=== PATIENT | male | born 1960 | race Caucasian/White ===

== ENCOUNTER 2020-07-14 05:27 | Inpatient (IN) | payer MEDICARE, OTHER, SELFPAY ==
[2020-07-14] VITALS (11 sets, daily range): BP systolic 150–183; BP diastolic 60–120; PULSE 89–137; RESP 16–36; TEMP 36.1–36.9; O2SAT 94–100; BMI 20.4
--- NOTE | 2020-07-14 | ECG_ITS ---
Test Reason : SOB Blood Pressure : / mmHG Vent. Rate : 092 BPM Atrial Rate : 092 BPM P-R Int : 140 ms QRS Dur : 114 ms QT Int : 400 ms P-R-T Axes : 076 090 -54 degrees QTc Int : 494 ms Sinus rhythm with sinus arrhythmia with occasional Premature ventricular complexes Rightward axis Possible Inferior infarct (cited on or before 25-NOV-2006) Abnormal ECG When compared with ECG of 14-JUL-2020 05:35, Premature ventricular complexes are now Present Premature atrial complexes are no longer Present Referred By: Marlene Berumen Electronically Signed By:HOMERO BAE MD
--- NOTE | 2020-07-14 | ECG_ITS ---
Test Reason : SOB Blood Pressure : / mmHG Vent. Rate : 125 BPM Atrial Rate : 125 BPM P-R Int : 136 ms QRS Dur : 098 ms QT Int : 320 ms P-R-T Axes : 066 093 -53 degrees QTc Int : 461 ms Sinus tachycardia with Premature atrial complexes Rightward axis Possible Inferior infarct (cited on or before 25-NOV-2006) Abnormal ECG When compared with ECG of 28-AUG-2017 13:55, Premature atrial complexes are now Present Vent. rate has increased BY 55 BPM Inverted T waves have replaced nonspecific T wave abnormality in Inferior leads Nonspecific T wave abnormality no longer evident in Lateral leads Referred By: Marlene Berumen Electronically Signed By:HOMERO BAE MD
--- NOTE | ~2020-07-14 | CT_ITS ---
EXAMINATION: CT ANGIOGRAM OF THE CHEST WITH AND WITHOUT CONTRAST (CT PULMONARY ANGIOGRAM FOR PE) CLINICAL INFORMATION: Shortness of breath. COMPARISON: Multiple priors, most recent chest radiographs done earlier the same day and 08/28/2017. TECHNIQUE: Prior to contrast administration, noncontrast localization images were obtained. Subsequently, multidetector volumetric imaging was performed from the thoracic inlet to below the diaphragms following the administration of 50 mL Omnipaque 350 intravenous contrast. No contrast reaction reported Sagittal, coronal, and MIP oblique sagittal reformatted images were obtained on the CT workstation, uploaded to PACS, and reviewed. This CT examination was performed using dose optimization techniques as appropriate, variously including the following: *Automated exposure control *Adjustment of mA and/or kV according to patient size (this includes techniques or standardized protocols for targeted exams where dose is matched to indication/reason for exam; i.e. extremities or head) *Use of iterative reconstruction technique Total exam dose-length product 343 mGy-cm. FINDINGS: QUALITY OF STUDY/CONTRAST BOLUS: Satisfactory. PULMONARY ARTERIES: No central or segmental pulmonary emboli. Minimal prominence of the main pulmonary artery, which could indicate a degree of pulmonary hypertension. THORACIC AORTA: No thoracic aortic dilatation or dissection. Scattered atherosclerotic calcifications. LUNG: Evaluation somewhat limited secondary to respiratory motion. Diffuse interstitial prominence with emphysematous changes and mixed groundglass airspace opacities throughout the bilateral lungs. Bilateral dependent atelectasis. More prominent contrast airspace opacities posteriorly within the right upper lobe. There are scattered subsolid more nodular foci measuring up to 1.1 cm within the left upper lobe (axial image [id number]). No large, confluent airspace consolidation. PLEURA: Small right and trace left-sided pleural effusion. No pneumothorax. MEDIASTINUM: No cardiomegaly. No pericardial effusion. Prominent superior mediastinal and bilateral hilar lymph nodes. The largest superior mediastinal lymph node appears slightly left of the cortney measuring 2 x 1.5 cm. No evidence of septal bowing or right heart strain. CHEST WALL/AXILLA: No axillary or internal mammary lymphadenopathy. OSSEOUS STRUCTURES: No acute or suspicious osseous abnormality. UPPER ABDOMEN: Unremarkable. No reflux of contrast into the hepatic veins to suggest elevated right heart pressures. CT/CT angio chest PE protocol IMPRESSION: 1. No central or segmental pulmonary embolism. 2. Mild prominence of the main pulmonary artery, which could indicate a degree of pulmonary hypertension. 3. Diffuse bilateral interstitial prominence with ground-glass airspace opacities, more prominent within the posterior right upper lobe. Mild associated emphysematous changes. Scattered areas of groundglass nodularity throughout the bilateral lungs. Findings may represent a chronic infectious or inflammatory process. No large, confluent airspace consolidation. 4. Prominent superior mediastinal and bilateral hilar lymphadenopathy. VTE: Negative.
--- NOTE | ~2020-07-14 | XR_ITS ---
EXAMINATION: CHEST 1 VIEW CLINICAL INFORMATION: Shortness of breath. COMPARISON: 08/28/2017. TECHNIQUE: An AP view of the chest is provided. FINDINGS: The cardiac silhouette is not enlarged. The mediastinal and hilar contours are unremarkable. There are neither pleural effusions nor pneumothoraces. There is diffuse interstitial prominence present throughout both lungs with superimposed airspace opacification within the right lower lung zone. The osseous structures are unremarkable. XR/XR chest 1V IMPRESSION: Diffuse interstitial prominence throughout both lungs with superimposed airspace opacification within the right lower lung zone.
--- NOTE | 2020-07-14 05:55 | ED.SOB ---
HPI - SOB/Dyspnea General Chief Complaint: Dyspnea <Marlene Berumen MD - Last Filed: 07/14/20 21:13> Stated Complaint: DIFF BREATHING, NO CONCERN FOR COVID PER EMS <Marlene Berumen MD - Last Filed: 07/14/20 21:13> Time Seen by Provider: 07/14/20 05:44 <Marlene Berumen MD - Last Filed: 07/14/20 21:13> History of Present Illness HPI Narrative: Patient is a 59-year-old male with a history of COPD. Long history of smoking. Complaining of increasing shortness of breath. Increasing cough upper respiratory symptoms that is getting worse the last couple days. Patient has a history of coronary artery disease. History of hypertension hypercholesterolemia. Has a history of diabetes. Patient unable to give detailed history secondary to extreme shortness of breath. <Marlene Berumen MD - Last Filed: 07/14/20 21:13> Related Data Home Medications: Home Medications Medication Instructions Recorded Confirmed aspirin 81 mg PO DAILY 07/14/20 07/14/20 budesonide-formoterol 2 puff INHALATION BID 07/14/20 07/14/20 duloxetine 60 mg PO DAILY 07/14/20 07/14/20 hydroxyzine HCl 10 mg PO BEDTIME PRN 07/14/20 07/14/20 insulin aspart U-100 [Novolog 46 unit SUBCUT TIDAC 07/14/20 07/14/20 Flexpen U-100 Insulin] insulin glargine [Lantus U-100 80 unit SUBCUT BEDTIME 07/14/20 07/14/20 Insulin] lisinopril 20 mg PO DAILY 07/14/20 07/14/20 metformin 1,500 mg PO DAILY 07/14/20 07/14/20 methadone 70 mg PO DAILY 07/14/20 07/14/20 metoprolol tartrate 25 mg PO BID 07/14/20 07/14/20 multivitamin with minerals 1 tab PO DAILY 07/14/20 07/14/20 omega 1-bid-psd-fish oil [Fish Oil] 1 cap PO DAILY 07/14/20 07/14/20 omeprazole 40 mg PO DAILY@0630 07/14/20 07/14/20 rosuvastatin 40 mg PO BEDTIME 07/14/20 07/14/20 <Marlene Berumen MD - Last Filed: 07/14/20 21:13> Allergies/Adverse Reactions: Allergies Allergy/AdvReac Type Severity Reaction Status Date / Time No Known Allergies Allergy Unknown Unverified 12/27/19 15:33 <Marlene Berumen MD - Last Filed: 07/14/20 21:13> Review of Systems Review of Systems: Unable to obtain review systems secondary to patient's condition <Marlene Berumen MD - Last Filed: 07/14/20 21:13> PMF Past Medical History Medical History: Medical History (Updated 07/14/20 @ 18:26 by Demond Ulloa MD) CAD (coronary artery disease) Diabetes mellitus HCV (hepatitis C virus) Ischemic cardiomyopathy Opioid dependence <Marlene Beurmen MD - Last Filed: 07/14/20 21:13> Social History Social History: Social History Household Members: Friend(s) Housing: Apartment Alcohol intake: never Smoking Status: Current every day smoker Tobacco Type: Cigarette Packs Per Day: 1 Cigarettes Per Day: 20.0 Patient Interested in Nicotine Replacement: Yes Patient Given Instructions on How to Stop Smoking: No Second Hand Smoke Exposure: No Use of substances other than those prescribed or required for medical reasons: Yes Substance Use Type: Crack/Cocaine Substance Use Frequency: Daily Last Used Substance: Days (ago) Any prior treatment program specific to substance use: No Do you feel safe in your current relationship?: No Current Relationship Is there a partner from a previous relationship who is making you feel unsafe now?: No Are you made to feel afraid or neglected: No Advance Directives: No Advance Directives Information Provided: No Advance Directives on File: No Do you have thoughts of harming others: None Do you have a plan to hurt others: No Plan Recently lost weight without trying: Yes service: Yes Current occupational status: unemployed <Marlene Berumen MD - Last Filed: 07/14/20 21:13> Physical Exam Vital Signs: Vital Signs: Last Vital Signs Temp 98.4 F 07/14/20 20:24 Pulse 92 07/14/20 20:52 Resp 18 07/14/20 18:25 BP 180/98 H 07/14/20 20:52 Pulse Ox 98 07/14/20 20:24 Body Mass Index 20.4 <Marlene Berumen MD - Last Filed: 07/14/20 21:13> Vital Signs: Last Vital Signs Temp 98.4 F 07/14/20 20:24 Pulse 92 07/14/20 20:52 Resp 18 07/14/20 18:25 BP 180/98 H 07/14/20 20:52 Pulse Ox 98 07/14/20 20:24 Body Mass Index 20.4 <Morris Stone MD - Last Filed: 07/14/20 10:10> Appearance: Alert. Oriented X3. Sick appearing short of breath Eyes: Pupils equal, round and reactive to light. ENT: Pharynx normal. Neck: Normal inspection. Neck supple. No lymph nodes noted. No crepitus CVS: Normal heart rate and rhythm. Pulses normal. Normal S1 and S2 Respiratory: Diminished breath sounds bilaterally, retracting. Increased work of breathing. Abdomen: Soft and nontender. No rigidity. No distention. good BS x4 Skin: Skin warm and dry. Normal skin color. Normal skin turgor. Extremities: No lower extremity edema. Neurovascular intact to all extremities. No Lacerations. No Rash Neuro: Oriented X 3. No motor deficit. No sensory deficit. Moving all extermities. Shortness speech <Marlene Berumen MD - Last Filed: 07/14/20 21:13> MDM - SOB/Dyspnea MDM Narrative Medical decision making narrative: Patient extremely short of breath. Needing non rebreather to keep the sat greater than 90%. We will go ahead and try BiPAP. Patient has a long history of COPD. We will go ahead and give steroid. Patient's ABG showed mild CO2 retention. Cultures obtain, lactate slightly elevated 2.8 likely related to albuterol use and not due to severe sepsis. Antibiotics started empirically for coughing and COPD. Additional labs are pending. Patient will be monitor closely. Will require admission for further evaluation of COPD. Patient's chest x-ray showed interstitial prominence. BNP is approximately 1900. Question cause of the elevated BNP. Will go ahead and start Lasix and nitro. BiPAP is still ongoing. We will monitor carefully. Will get CTA of the chest to rule out the possibility of PE. CTA of the chest was grossly negative for any acute evidence of pulmonary emboli. Patient tolerated being off CPAP. Being admitted to the hospital for COPD. Will admit for further evaluation <Marlene Berumen MD - Last Filed: 07/14/20 21:13> Differential Diagnosis Differential diagnosis: Likely acute exacerbation of chronic obstructive airways disease <Marlene Berumen MD - Last Filed: 07/14/20 21:13> Lab Data Result diagrams: : 07/14/20 05:54 07/14/20 05:54 <Marlene Berumen MD - Last Filed: 07/14/20 21:13> Labs: Lab Results 07/14/20 07/14/20 07/14/20 Range/Units 05:54 05:54 05:54 WBC 12.7 H (4.8-10.8) X10*3/uL RBC 4.69 (4.60-5.80) X10*6/uL Hgb 14.4 (14.0-18.0) g/dl Hct 45.3 (42-52) % MCV 96.6 (80-98) fL MCH 30.7 (27.0-33.0) pg MCHC 31.8 (31.0-36.0) g/dl RDW 13.3 (11.0-16.0) % Plt Count 256 (160-400) X10*3/uL MPV 10.5 (9.4-12.4) fL Immature Gran % (Auto) 0.3 (0.0-0.4) % Neut % (Auto) 66.5 (45-73) % Lymph % (Auto) 20.6 (20-40) % [place] % (Auto) 8.2 (2-11) % Eos % (Auto) 3.6 (0-4) % Baso % (Auto) 0.8 (0-2) % Lymph # (Auto) 2.6 (1.2-4.9) X10*3/uL [place] # (Auto) 1.0 (0.1-1.2) X10*3/uL Eos # (Auto) 0.5 H (0.0-0.4) X10*3/uL Baso # (Auto) 0.1 (0.0-0.2) X10*3/uL Abs Immat Gran (auto) 0.04 H (0.00-0.03) X10*3/uL Absolute Neuts (auto) 8.4 H (2.0-8.3) X10*3/uL Absolute Nucleated RBC 0.000 (0.0-0.012) X10*3/uL Nucleated RBC % (auto) 0.0 (0.0-0.2) /100WBC PT (10.8-13.0) SEC INR (0.9-1.1) O2 Saturation % ABG pH at Pt Temp (7.35-7.45) ABG pH (Temp Correct) (7.35-7.45) ABG pCO2 at Pt Temp (32-45) mmHg ABG pCO2 (Temp Corrct (32-45) mmHg ABG pO2 at Pt Temp (83-108) mmHg ABG pO2 (Temp Correct (83-108) ABG HCO3 (22-26) mmol/L ABG Base Excess (Actual) mmol/L Sodium 134 L (135-145) mmol/L Potassium 4.4 (3.3-5.1) mmol/L Chloride 98 (96-108) mmol/L Carbon Dioxide 23 (22-29) mmol/L Anion Gap 17 (12-20) BUN 14 (9-16) mg/dL Creatinine 1.02 (0.5-1.4) mg/dL Estim Creat Clear Calc 66.9 Estimated GFR > 60 Random Glucose 206 H (60-115) mg/dL Lactic Acid 2.8 H* (0.5-2.0) mmol/L Lactic Acid Fup @ 2Hr (0.5-2.0) mmol/L Calcium 9.0 (8.4-10.2) mg/dL Total Bilirubin 0.6 (0.0-1.0) mg/dL Direct Bilirubin 0.3 (0.0-0.5) mg/dL AST 47 H (5-37) U/L ALT 35 (0-40) U/L Alkaline Phosphatase 111 (39-117) U/L Troponin I High Sens (<3.5-35.0) ng/L B-Natriuretic Peptide (<100) pg/mL Total Protein 8.3 H (6.5-8.0) g/dL Albumin 3.8 (3.5-5.0) g/dL Coronavirus (PCR) (Negative) COVID-19 ([facility]) (Negative) COVID-19 Clin Com Influenza Type A (PCR) (Negative) Influenza Type B (PCR) (Negative) RSV RNA Qual (PCR) (Negative) 07/14/20 07/14/20 07/14/20 Range/Units 05:54 05:54 05:54 WBC (4.8-10.8) X10*3/uL RBC (4.60-5.80) X10*6/uL Hgb (14.0-18.0) g/dl Hct (42-52) % MCV (80-98) fL MCH (27.0-33.0) pg MCHC (31.0-36.0) g/dl RDW (11.0-16.0) % Plt Count (160-400) X10*3/uL MPV (9.4-12.4) fL Immature Gran % (Auto) (0.0-0.4) % Neut % (Auto) (45-73) % Lymph % (Auto) (20-40) % [place] % (Auto) (2-11) % Eos % (Auto) (0-4) % Baso % (Auto) (0-2) % Lymph # (Auto) (1.2-4.9) X10*3/uL [place] # (Auto) (0.1-1.2) X10*3/uL Eos # (Auto) (0.0-0.4) X10*3/uL Baso # (Auto) (0.0-0.2) X10*3/uL Abs Immat Gran (auto) (0.00-0.03) X10*3/uL Absolute Neuts (auto) (2.0-8.3) X10*3/uL Absolute Nucleated RBC (0.0-0.012) X10*3/uL Nucleated RBC % (auto) (0.0-0.2) /100WBC PT 13.7 H (10.8-13.0) SEC INR 1.2 H (0.9-1.1) O2 Saturation % ABG pH at Pt Temp (7.35-7.45) ABG pH (Temp Correct) (7.35-7.45) ABG pCO2 at Pt Temp (32-45) mmHg ABG pCO2 (Temp Corrct (32-45) mmHg ABG pO2 at Pt Temp (83-108) mmHg ABG pO2 (Temp Correct (83-108) ABG HCO3 (22-26) mmol/L ABG Base Excess (Actual) mmol/L Sodium (135-145) mmol/L Potassium (3.3-5.1) mmol/L Chloride (96-108) mmol/L Carbon Dioxide (22-29) mmol/L Anion Gap (12-20) BUN (9-16) mg/dL Creatinine (0.5-1.4) mg/dL Estim Creat Clear Calc Estimated GFR Random Glucose (60-115) mg/dL Lactic Acid (0.5-2.0) mmol/L Lactic Acid Fup @ 2Hr (0.5-2.0) mmol/L Calcium (8.4-10.2) mg/dL Total Bilirubin (0.0-1.0) mg/dL Direct Bilirubin (0.0-0.5) mg/dL AST (5-37) U/L ALT (0-40) U/L Alkaline Phosphatase (39-117) U/L Troponin I High Sens 37.4 H (<3.5-35.0) ng/L B-Natriuretic Peptide 1962 H (<100) pg/mL Total Protein (6.5-8.0) g/dL Albumin (3.5-5.0) g/dL Coronavirus (PCR) (Negative) COVID-19 ([facility]) Negative (Negative) COVID-19 Clin Com See Note Influenza Type A (PCR) (Negative) Influenza Type B (PCR) (Negative) RSV RNA Qual (PCR) (Negative) 07/14/20 07/14/20 07/14/20 Range/Units 05:56 05:57 10:33 WBC (4.8-10.8) X10*3/uL RBC (4.60-5.80) X10*6/uL Hgb (14.0-18.0) g/dl Hct (42-52) % MCV (80-98) fL MCH (27.0-33.0) pg MCHC (31.0-36.0) g/dl RDW (11.0-16.0) % Plt Count (160-400) X10*3/uL MPV (9.4-12.4) fL Immature Gran % (Auto) (0.0-0.4) % Neut % (Auto) (45-73) % Lymph % (Auto) (20-40) % [place] % (Auto) (2-11) % Eos % (Auto) (0-4) % Baso % (Auto) (0-2) % Lymph # (Auto) (1.2-4.9) X10*3/uL [place] # (Auto) (0.1-1.2) X10*3/uL Eos # (Auto) (0.0-0.4) X10*3/uL Baso # (Auto) (0.0-0.2) X10*3/uL Abs Immat Gran (auto) (0.00-0.03) X10*3/uL Absolute Neuts (auto) (2.0-8.3) X10*3/uL Absolute Nucleated RBC (0.0-0.012) X10*3/uL Nucleated RBC % (auto) (0.0-0.2) /100WBC PT (10.8-13.0) SEC INR (0.9-1.1) O2 Saturation 96.0 % ABG pH at Pt Temp 7.32 L (7.35-7.45) ABG pH (Temp Correct) 7.33 L (7.35-7.45) ABG pCO2 at Pt Temp 48 H (32-45) mmHg ABG pCO2 (Temp Corrct 46 H (32-45) mmHg ABG pO2 at Pt Temp 95 (83-108) mmHg ABG pO2 (Temp Correct 90 (83-108) ABG HCO3 25 (22-26) mmol/L ABG Base Excess (Actual) -1.1 mmol/L Sodium (135-145) mmol/L Potassium (3.3-5.1) mmol/L Chloride (96-108) mmol/L Carbon Dioxide (22-29) mmol/L Anion Gap (12-20) BUN (9-16) mg/dL Creatinine (0.5-1.4) mg/dL Estim Creat Clear Calc Estimated GFR Random Glucose (60-115) mg/dL Lactic Acid (0.5-2.0) mmol/L Lactic Acid Fup @ 2Hr 2.0 (0.5-2.0) mmol/L Calcium (8.4-10.2) mg/dL Total Bilirubin (0.0-1.0) mg/dL Direct Bilirubin (0.0-0.5) mg/dL AST (5-37) U/L ALT (0-40) U/L Alkaline Phosphatase (39-117) U/L Troponin I High Sens (<3.5-35.0) ng/L B-Natriuretic Peptide (<100) pg/mL Total Protein (6.5-8.0) g/dL Albumin (3.5-5.0) g/dL Coronavirus (PCR) NEGATIVE (Negative) COVID-19 ([facility]) (Negative) COVID-19 Clin Com Influenza Type A (PCR) NEGATIVE (Negative) Influenza Type B (PCR) NEGATIVE (Negative) RSV RNA Qual (PCR) NEGATIVE (Negative) <Marlene Berumen MD - Last Filed: 07/14/20 21:13> Lab Results 07/14/20 07/14/20 07/14/20 Range/Units 05:54 05:54 05:54 WBC 12.7 H (4.8-10.8) X10*3/uL RBC 4.69 (4.60-5.80) X10*6/uL Hgb 14.4 (14.0-18.0) g/dl Hct 45.3 (42-52) % MCV 96.6 (80-98) fL MCH 30.7 (27.0-33.0) pg MCHC 31.8 (31.0-36.0) g/dl RDW 13.3 (11.0-16.0) % Plt Count 256 (160-400) X10*3/uL MPV 10.5 (9.4-12.4) fL Immature Gran % (Auto) 0.3 (0.0-0.4) % Neut % (Auto) 66.5 (45-73) % Lymph % (Auto) 20.6 (20-40) % [place] % (Auto) 8.2 (2-11) % Eos % (Auto) 3.6 (0-4) % Baso % (Auto) 0.8 (0-2) % Lymph # (Auto) 2.6 (1.2-4.9) X10*3/uL [place] # (Auto) 1.0 (0.1-1.2) X10*3/uL Eos # (Auto) 0.5 H (0.0-0.4) X10*3/uL Baso # (Auto) 0.1 (0.0-0.2) X10*3/uL Abs Immat Gran (auto) 0.04 H (0.00-0.03) X10*3/uL Absolute Neuts (auto) 8.4 H (2.0-8.3) X10*3/uL Absolute Nucleated RBC 0.000 (0.0-0.012) X10*3/uL Nucleated RBC % (auto) 0.0 (0.0-0.2) /100WBC PT (10.8-13.0) SEC INR (0.9-1.1) O2 Saturation % ABG pH at Pt Temp (7.35-7.45) ABG pH (Temp Correct) (7.35-7.45) ABG pCO2 at Pt Temp (32-45) mmHg ABG pCO2 (Temp Corrct (32-45) mmHg ABG pO2 at Pt Temp (83-108) mmHg ABG pO2 (Temp Correct (83-108) ABG HCO3 (22-26) mmol/L ABG Base Excess (Actual) mmol/L Sodium 134 L (135-145) mmol/L Potassium 4.4 (3.3-5.1) mmol/L Chloride 98 (96-108) mmol/L Carbon Dioxide 23 (22-29) mmol/L Anion Gap 17 (12-20) BUN 14 (9-16) mg/dL Creatinine 1.02 (0.5-1.4) mg/dL Estim Creat Clear Calc 66.9 Estimated GFR > 60 Random Glucose 206 H (60-115) mg/dL Lactic Acid 2.8 H* (0.5-2.0) mmol/L Lactic Acid Fup @ 2Hr (0.5-2.0) mmol/L Calcium 9.0 (8.4-10.2) mg/dL Total Bilirubin 0.6 (0.0-1.0) mg/dL Direct Bilirubin 0.3 (0.0-0.5) mg/dL AST 47 H (5-37) U/L ALT 35 (0-40) U/L Alkaline Phosphatase 111 (39-117) U/L Troponin I High Sens (<3.5-35.0) ng/L B-Natriuretic Peptide (<100) pg/mL Total Protein 8.3 H (6.5-8.0) g/dL Albumin 3.8 (3.5-5.0) g/dL Coronavirus (PCR) (Negative) COVID-19 ([facility]) (Negative) COVID-19 Clin Com Influenza Type A (PCR) (Negative) Influenza Type B (PCR) (Negative) RSV RNA Qual (PCR) (Negative) 07/14/20 07/14/20 07/14/20 Range/Units 05:54 05:54 05:54 WBC (4.8-10.8) X10*3/uL RBC (4.60-5.80) X10*6/uL Hgb (14.0-18.0) g/dl Hct (42-52) % MCV (80-98) fL MCH (27.0-33.0) pg MCHC (31.0-36.0) g/dl RDW (11.0-16.0) % Plt Count (160-400) X10*3/uL MPV (9.4-12.4) fL Immature Gran % (Auto) (0.0-0.4) % Neut % (Auto) (45-73) % Lymph % (Auto) (20-40) % [place] % (Auto) (2-11) % Eos % (Auto) (0-4) % Baso % (Auto) (0-2) % Lymph # (Auto) (1.2-4.9) X10*3/uL [place] # (Auto) (0.1-1.2) X10*3/uL Eos # (Auto) (0.0-0.4) X10*3/uL Baso # (Auto) (0.0-0.2) X10*3/uL Abs Immat Gran (auto) (0.00-0.03) X10*3/uL Absolute Neuts (auto) (2.0-8.3) X10*3/uL Absolute Nucleated RBC (0.0-0.012) X10*3/uL Nucleated RBC % (auto) (0.0-0.2) /100WBC PT 13.7 H (10.8-13.0) SEC INR 1.2 H (0.9-1.1) O2 Saturation % ABG pH at Pt Temp (7.35-7.45) ABG pH (Temp Correct) (7.35-7.45) ABG pCO2 at Pt Temp (32-45) mmHg ABG pCO2 (Temp Corrct (32-45) mmHg ABG pO2 at Pt Temp (83-108) mmHg ABG pO2 (Temp Correct (83-108) ABG HCO3 (22-26) mmol/L ABG Base Excess (Actual) mmol/L Sodium (135-145) mmol/L Potassium (3.3-5.1) mmol/L Chloride (96-108) mmol/L Carbon Dioxide (22-29) mmol/L Anion Gap (12-20) BUN (9-16) mg/dL Creatinine (0.5-1.4) mg/dL Estim Creat Clear Calc Estimated GFR Random Glucose (60-115) mg/dL Lactic Acid (0.5-2.0) mmol/L Lactic Acid Fup @ 2Hr (0.5-2.0) mmol/L Calcium (8.4-10.2) mg/dL Total Bilirubin (0.0-1.0) mg/dL Direct Bilirubin (0.0-0.5) mg/dL AST (5-37) U/L ALT (0-40) U/L Alkaline Phosphatase (39-117) U/L Troponin I High Sens 37.4 H (<3.5-35.0) ng/L B-Natriuretic Peptide 1962 H (<100) pg/mL Total Protein (6.5-8.0) g/dL Albumin (3.5-5.0) g/dL Coronavirus (PCR) (Negative) COVID-19 ([facility]) Negative (Negative) COVID-19 Clin Com See Note Influenza Type A (PCR) (Negative) Influenza Type B (PCR) (Negative) RSV RNA Qual (PCR) (Negative) 07/14/20 07/14/20 07/14/20 Range/Units 05:56 05:57 10:33 WBC (4.8-10.8) X10*3/uL RBC (4.60-5.80) X10*6/uL Hgb (14.0-18.0) g/dl Hct (42-52) % MCV (80-98) fL MCH (27.0-33.0) pg MCHC (31.0-36.0) g/dl RDW (11.0-16.0) % Plt Count (160-400) X10*3/uL MPV (9.4-12.4) fL Immature Gran % (Auto) (0.0-0.4) % Neut % (Auto) (45-73) % Lymph % (Auto) (20-40) % [place] % (Auto) (2-11) % Eos % (Auto) (0-4) % Baso % (Auto) (0-2) % Lymph # (Auto) (1.2-4.9) X10*3/uL [place] # (Auto) (0.1-1.2) X10*3/uL Eos # (Auto) (0.0-0.4) X10*3/uL Baso # (Auto) (0.0-0.2) X10*3/uL Abs Immat Gran (auto) (0.00-0.03) X10*3/uL Absolute Neuts (auto) (2.0-8.3) X10*3/uL Absolute Nucleated RBC (0.0-0.012) X10*3/uL Nucleated RBC % (auto) (0.0-0.2) /100WBC PT (10.8-13.0) SEC INR (0.9-1.1) O2 Saturation 96.0 % ABG pH at Pt Temp 7.32 L (7.35-7.45) ABG pH (Temp Correct) 7.33 L (7.35-7.45) ABG pCO2 at Pt Temp 48 H (32-45) mmHg ABG pCO2 (Temp Corrct 46 H (32-45) mmHg ABG pO2 at Pt Temp 95 (83-108) mmHg ABG pO2 (Temp Correct 90 (83-108) ABG HCO3 25 (22-26) mmol/L ABG Base Excess (Actual) -1.1 mmol/L Sodium (135-145) mmol/L Potassium (3.3-5.1) mmol/L Chloride (96-108) mmol/L Carbon Dioxide (22-29) mmol/L Anion Gap (12-20) BUN (9-16) mg/dL Creatinine (0.5-1.4) mg/dL Estim Creat Clear Calc Estimated GFR Random Glucose (60-115) mg/dL Lactic Acid (0.5-2.0) mmol/L Lactic Acid Fup @ 2Hr 2.0 (0.5-2.0) mmol/L Calcium (8.4-10.2) mg/dL Total Bilirubin (0.0-1.0) mg/dL Direct Bilirubin (0.0-0.5) mg/dL AST (5-37) U/L ALT (0-40) U/L Alkaline Phosphatase (39-117) U/L Troponin I High Sens (<3.5-35.0) ng/L B-Natriuretic Peptide (<100) pg/mL Total Protein (6.5-8.0) g/dL Albumin (3.5-5.0) g/dL Coronavirus (PCR) NEGATIVE (Negative) COVID-19 ([facility]) (Negative) COVID-19 Clin Com Influenza Type A (PCR) NEGATIVE (Negative) Influenza Type B (PCR) NEGATIVE (Negative) RSV RNA Qual (PCR) NEGATIVE (Negative) <Morris Stone MD - Last Filed: 07/14/20 10:10> Imaging Data CT scan - chest: Radiologist's impression: no PE, COPD changes with interstitial infiltrates <Morris Stone MD - Last Filed: 07/14/20 10:10> ECG Data Interpretation: Sinus tachycardia heart rate was 130 there is no acute ST segment elevation noted. There is T-wave flattening over the inferior leads. <Marlene Berumen MD - Last Filed: 07/14/20 21:13> Critical Care Time Critical Care Time Critical Care Time: Yes <Marlene Berumen MD - Last Filed: 07/14/20 21:13> Total Critical Care Time: 50 <Marlene Berumen MD - Last Filed: 07/14/20 21:13> Attestation: I have personally provided 50 minutes of critical care time exclusive of time spent on separately billable procedures. Time includes review of lab data, radiology results, discussion with consultants, and monitoring for potential decompensation. Interventions were performed as documented above <Marlene Berumen MD - Last Filed: 07/14/20 21:13> Discharge Plan Discharge Clinical Impression: Acute exacerbation of chronic obstructive airways disease COPD (chronic obstructive pulmonary disease) Qualifiers: COPD type: COPD with acute exacerbation Qualified Code(s): J44.1 - Chronic obstructive pulmonary disease with (acute) exacerbation <Marlene Berumen MD - Last Filed: 07/14/20 21:13> Patient Disposition: Admitted As Inpatient <Marlene Berumen MD - Last Filed: 07/14/20 21:13> Interventions: Admission Worksheet (ED) Last Done: 07/14/20 19:44 <Marlene Berumen MD - Last Filed: 07/14/20 21:13> Discharge Date/Time: 07/14/20 20:06 <Marlene Berumen MD - Last Filed: 07/14/20 21:13>
[2020-07-14 06:03] LABS: ABG Base Excess -1.1 mmol/L; ABG HCO3 25 mmol/L (22-26); ABG pCO2 48 mmHg (32-45); ABG pCO2 TC 46 mmHg (32-45); ABG pH 7.32 (7.35-7.45); ABG pH TC 7.33 (7.35-7.45); ABG pO2 95 mmHg (83-108); ABG pO2 TC 90 (83-108)
[2020-07-14 06:08] LABS: ABG Refer to POC result
[2020-07-14 06:12] LABS: MANUAL DIFF FLAG NO
[2020-07-14 06:15] LABS: Basophils Absolute Auto 0.1 X10*3/uL (0.0-0.2); Basophils Percent Auto 0.8 % (0-2); Eosinophils Absolute Auto 0.5 X10*3/uL (0.0-0.4); Eosinophils Percent Auto 3.6 % (0-4); Hematocrit 45.3 % (42-52); Hemoglobin 14.4 g/dl (14.0-18.0); Imm Gran Abs Auto 0.04 X10*3/uL (0.00-0.03); Imm Gran Pct Auto 0.3 % (0.0-0.4); Lymphocytes Absolute Auto 2.6 X10*3/uL (1.2-4.9); Lymphocytes Percent Auto 20.6 % (20-40); Mean Corpuscular HGB Conc 31.8 g/dl (31.0-36.0); Mean Corpuscular Hemoglobin 30.7 pg (27.0-33.0); Mean Corpuscular Volume 96.6 fL (80-98); Mean Platelet Volume 10.5 fL (9.4-12.4); Monocytes Percent Auto 8.2 % (2-11); Neutrophils Absolute Auto 8.4 X10*3/uL (2.0-8.3); Neutrophils Percent Auto 66.5 % (45-73); Platelet Count 256 X10*3/uL (160-400); Red Blood Count 4.69 X10*6/uL (4.60-5.80); Red Cell Distribution Width 13.3 % (11.0-16.0); White Blood Count 12.7 X10*3/uL (4.8-10.8)
[2020-07-14] MEDS: Albuterol Sulfate (0.083%) 2.5 MG/3 ML VIAL.NEB 7.5 MG INHALE (06:15)
[2020-07-14] MEDS: methylPREDNISolone Sod Succ 125 MG/2 ML VIAL IVPUSH (06:25)
[2020-07-14] MEDS: cefEPime HCl 1 GM in 0.9 % Sodium Chloride 50 ML IV (06:25)
--- NOTE | 2020-07-14 06:31 | PC.NURSE ---
Pt comes from home via EMS for dyspnea. On the arrival, skin pale, cold. increase of wob seen. o2 sat 82% at room air. RT and md at bedside for initial eval. bipap applied immediately. setting at 50% 15/5 o2 improved 95%. EKG. IV line established. labs covid swab completed. ABG completed by RT. Solumedrol, cefepime given per emar. pt downgraded to CPAP setting at 40%. Critical lab of lactic acid at 2.8. made aware of. Will continue to monitor.
[2020-07-14 06:35] LABS: Lactic Acid 2.8 mmol/L (0.5-2.0)
[2020-07-14 06:37] LABS: COVID-19 Test Negative (Negative)
[2020-07-14 06:38] LABS: Alanine Aminotransferase 35 U/L (0-40); Albumin Level 3.8 g/dL (3.5-5.0); Alkaline Phosphatase 111 U/L (39-117); Anion Gap 17 (12-20); Aspartate Amino Transferase 47 U/L (5-37); Bilirubin Direct 0.3 mg/dL (0.0-0.5); Bilirubin Total 0.6 mg/dL (0.0-1.0); Blood Urea Nitrogen 14 mg/dL (9-16); Carbon Dioxide 23 mmol/L (22-29); Chloride 98 mmol/L (96-108); Creatinine Clr Calc Pharmacy 66.9; Estimated Glomerular Filt Rate > 60; Glucose Random 206 mg/dL (60-115); Potassium 4.4 mmol/L (3.3-5.1); Sodium 134 mmol/L (135-145); Total Protein 8.3 g/dL (6.5-8.0)
[2020-07-14 06:41] LABS: INTERNATIONAL NORM RATIO 1.2 (0.9-1.1); Prothrombin Time 13.7 SEC (10.8-13.0)
[2020-07-14 06:42] LABS: B Type Natriuretic Peptide 1962 pg/mL (<100); Troponin-I High Sensitivity 37.4 ng/L (<3.5-35.0)
[2020-07-14 06:49] LABS: Influenza A PCR NEGATIVE (Negative); Influenza B PCR NEGATIVE (Negative); Resp Syncy Virus RNA Qual PCR NEGATIVE (Negative); SARS COV2 PCR INHOUSE NEGATIVE (Negative)
[2020-07-14] MEDS: Magnesium Sulfate/H2O 2 GM/50 ML PIGGYBACK IV (06:52)
--- NOTE | 2020-07-14 06:53 | PC.NURSE ---
Mg given via iv per emar.
[2020-07-14 08:09] LABS: Reflex Lactate? Lactic Acid Added
[2020-07-14] MEDS: Nitroglycerin 2 % Oint 1 GM Packet 0.5 INCH TRANSDERMA (09:33)
[2020-07-14] MEDS: Furosemide 40 MG/4 ML VIAL IVPUSH (09:34)
--- NOTE | 2020-07-14 10:14 | PC.NURSE ---
PT WANTS TO LEAVE DR GILL AWARE
--- NOTE | 2020-07-14 13:36 | PC.NURSE ---
called [facility] in [place], [phone] spoke with e[facility]equ[facility] Medical release sent in order to get methadone dose
--- NOTE | 2020-07-14 16:14 | MHC.CM.PN ---
CM attempted to meet with pt, but pt was sleeping and CM was unable to wake pt. Will try to meet with pt when awake. Attempted to call niece, Primary contact Cindy Voss, but phone was busy. Will try again later. Pt is admitted, 999 status. CM to follow for d/c needs.
--- NOTE | 2020-07-14 18:17 | PM.IMHP ---
History of Present Illness Date of Service: 07/14/20 Chief Complaint: sob 59M presented with shortness of breath. Patient states that he is chronically short of breath, but on day of admission patient woke up feeling like he was going to . He came to the ED via EMS, and noted to have acute hypoxia with saturation of 82% on room air. Patient required CPAP, was given Solu-Medrol and cefepime and nebulizers. Patient did much better was weaned off O2. CTA did not show any pulmonary embolism but did show hazy bilateral opacities and lymphadenopathy. Patient notes that he has not been taking his medications last several months. He notes weight loss cannot say exactly much. He is feeling much better by the time he was seen, but still more short of breath than usual. He usually uses heroin and methadone daily and is currently feeling withdrawal. Patient denies any fever, cough, chest pain. Review of Systems Review of Systems: Constitutional: Denies fever, denies Chills Eyes: denies blurry vision ENT: denies sore throat CVS: denies chest pain Respiratory: dyspnea GI: no abdominal pain : denies dysuria MSK: denies neck pain Skin: denies rash Neuro: denies specific motor weakness Psych: denies suicidal ideation Endocrine: denies heat/cold intoleratnce Hematologic: denies easy bleeding Allergy: denies hives PMFSH Medical History CAD (coronary artery disease) Diabetes mellitus Ischemic cardiomyopathy Opioid dependence Family history: reviewed and not pertinent Social History Alcohol intake: never Smoking Status: Current every day smoker Use of substances other than those prescribed or required for medical reasons: Yes Substance Use Type: Heroin Substance Use Frequency: Daily Last Used Substance: Days (ago) Any prior treatment program specific to substance use: No Advance Directives: No Advance Directives Information Provided: No Meds Allergies Allergy/AdvReac Type Severity Reaction Status Date / Time No Known Allergies Allergy Unknown Unverified 12/27/19 15:33 Active Medications: Current Medications Generic Name Dose Route Start Last Admin Trade Name Freq PRN Reason Stop Dose Admin Pharmacy Consult 1 each 07/14/20 07:44 Consult Rx Perform Med Rec MISCELLANE ONCE PRN Consult order Home Medications Medication Instructions Recorded Confirmed Last Taken Type aspirin 81 mg PO DAILY 07/14/20 07/14/20 Unknown History budesonide-formoterol 2 puff INHALATION BID 07/14/20 07/14/20 Unknown History duloxetine 60 mg PO DAILY 07/14/20 07/14/20 Unknown History hydroxyzine HCl 10 mg PO BEDTIME PRN 07/14/20 07/14/20 Unknown History insulin aspart U-100 [Novolog 46 unit SUBCUT TIDAC 07/14/20 07/14/20 Unknown History Flexpen U-100 Insulin] insulin glargine [Lantus U-100 80 unit SUBCUT BEDTIME 07/14/20 07/14/20 Unknown History Insulin] lisinopril 20 mg PO DAILY 07/14/20 07/14/20 Unknown History metformin 1,500 mg PO DAILY 07/14/20 07/14/20 Unknown History methadone 70 mg PO DAILY 07/14/20 07/14/20 07/13/20 History metoprolol tartrate 25 mg PO BID 07/14/20 07/14/20 Unknown History multivitamin with minerals 1 tab PO DAILY 07/14/20 07/14/20 Unknown History omega 2-zfs-woe-fish oil [Fish Oil] 1 cap PO DAILY 07/14/20 07/14/20 Unknown History omeprazole 40 mg PO DAILY@0630 07/14/20 07/14/20 Unknown History rosuvastatin 40 mg PO BEDTIME 07/14/20 07/14/20 Unknown History Physical Exam Vital Signs and Narrative: Vital Signs: Last Vital Signs Temp 98.2 F 07/14/20 10:00 Pulse 91 07/14/20 10:00 Resp 18 07/14/20 10:00 BP 162/79 H 07/14/20 10:00 Pulse Ox 94 07/14/20 10:00 Body Mass Index 20.4 General: Short of breath, agitated, ill-appearing, disheveled, malnourished HEENT: atraumatic Neck: normal to visual inspection CVS: S1, S2, RRR Resp: Diminished Chest: non tender GI: soft, non tender, non distended : no CVA tenderness Skin: no rashes Extremities: no edema Neuro: Oriented X3, grossly intact Psych: Irritated Results Labs CBC and Chem 7: 07/14/20 05:54 07/14/20 05:54 Labs: Laboratory Results - last 24 hr 07/14/20 07/14/20 07/14/20 05:54 05:54 05:54 MCV 96.6 MCH 30.7 MCHC 31.8 RDW 13.3 Plt Count 256 MPV 10.5 Immature Gran % (Auto) 0.3 Neut % (Auto) 66.5 Lymph % (Auto) 20.6 [place] % (Auto) 8.2 Eos % (Auto) 3.6 Baso % (Auto) 0.8 Lymph # (Auto) 2.6 [place] # (Auto) 1.0 Eos # (Auto) 0.5 H Baso # (Auto) 0.1 Abs Immat Gran (auto) 0.04 H Absolute Neuts (auto) 8.4 H Absolute Nucleated RBC 0.000 Nucleated RBC % (auto) 0.0 PT INR O2 Saturation ABG pH at Pt Temp ABG pH (Temp Correct) ABG pCO2 at Pt Temp ABG pCO2 (Temp Corrct ABG pO2 at Pt Temp ABG pO2 (Temp Correct ABG HCO3 ABG Base Excess (Actual) Anion Gap 17 Estim Creat Clear Calc 66.9 Estimated GFR > 60 Random Glucose 206 H Lactic Acid 2.8 H* Lactic Acid Fup @ 2Hr Calcium 9.0 Total Bilirubin 0.6 Direct Bilirubin 0.3 AST 47 H ALT 35 Alkaline Phosphatase 111 Troponin I High Sens B-Natriuretic Peptide Total Protein 8.3 H Albumin 3.8 Coronavirus (PCR) COVID-19 ([facility]) COVID-19 Clin Com Influenza Type A (PCR) Influenza Type B (PCR) RSV RNA Qual (PCR) 07/14/20 07/14/20 07/14/20 05:54 05:54 05:54 MCV MCH MCHC RDW Plt Count MPV Immature Gran % (Auto) Neut % (Auto) Lymph % (Auto) [place] % (Auto) Eos % (Auto) Baso % (Auto) Lymph # (Auto) [place] # (Auto) Eos # (Auto) Baso # (Auto) Abs Immat Gran (auto) Absolute Neuts (auto) Absolute Nucleated RBC Nucleated RBC % (auto) PT 13.7 H INR 1.2 H O2 Saturation ABG pH at Pt Temp ABG pH (Temp Correct) ABG pCO2 at Pt Temp ABG pCO2 (Temp Corrct ABG pO2 at Pt Temp ABG pO2 (Temp Correct ABG HCO3 ABG Base Excess (Actual) Anion Gap Estim Creat Clear Calc Estimated GFR Random Glucose Lactic Acid Lactic Acid Fup @ 2Hr Calcium Total Bilirubin Direct Bilirubin AST ALT Alkaline Phosphatase Troponin I High Sens 37.4 H B-Natriuretic Peptide 1960 H Total Protein Albumin Coronavirus (PCR) COVID-19 ([facility]) Negative COVID-19 Clin Com See Note Influenza Type A (PCR) Influenza Type B (PCR) RSV RNA Qual (PCR) 07/14/20 07/14/20 07/14/20 05:56 05:57 10:33 MCV MCH MCHC RDW Plt Count MPV Immature Gran % (Auto) Neut % (Auto) Lymph % (Auto) [place] % (Auto) Eos % (Auto) Baso % (Auto) Lymph # (Auto) [place] # (Auto) Eos # (Auto) Baso # (Auto) Abs Immat Gran (auto) Absolute Neuts (auto) Absolute Nucleated RBC Nucleated RBC % (auto) PT INR O2 Saturation 96.0 ABG pH at Pt Temp 7.32 L ABG pH (Temp Correct) 7.33 L ABG pCO2 at Pt Temp 48 H ABG pCO2 (Temp Corrct 46 H ABG pO2 at Pt Temp 95 ABG pO2 (Temp Correct 90 ABG HCO3 25 ABG Base Excess (Actual) -1.1 Anion Gap Estim Creat Clear Calc Estimated GFR Random Glucose Lactic Acid Lactic Acid Fup @ 2Hr 2.0 Calcium Total Bilirubin Direct Bilirubin AST ALT Alkaline Phosphatase Troponin I High Sens B-Natriuretic Peptide Total Protein Albumin Coronavirus (PCR) NEGATIVE COVID-19 ([facility]) COVID-19 Clin Com Influenza Type A (PCR) NEGATIVE Influenza Type B (PCR) NEGATIVE RSV RNA Qual (PCR) NEGATIVE Imaging Radiologist's Impressions: Impressions Chest X-Ray 07/14/20 05:47 IMPRESSION: Diffuse interstitial prominence throughout both lungs with superimposed airspace opacification within the right lower lung zone. Chest CTA 07/14/20 06:49 IMPRESSION: 1. No central or segmental pulmonary embolism. 2. Mild prominence of the main pulmonary artery, which could indicate a degree of pulmonary hypertension. 3. Diffuse bilateral interstitial prominence with ground-glass airspace opacities, more prominent within the posterior right upper lobe. Mild associated emphysematous changes. Scattered areas of groundglass nodularity throughout the bilateral lungs. Findings may represent a chronic infectious or inflammatory process. No large, confluent airspace consolidation. 4. Prominent superior mediastinal and bilateral hilar lymphadenopathy. VTE: Negative. Assessment and Plan (1) Acute exacerbation of chronic obstructive airways disease: Status: Acute 59M presented shortness of breath Acute hypoxic and hypercapnic respiratory failure due to COPD, pneumonia, acute on chronic CHF (unspecified, has history of ischemic cardiomyopathy, will check echo) Steroids, bronchodilators, empiric antibiotics IV Lasix Check echo Weight loss, cachexia Check HIV Diabetes Basal bolus insulin CAD Aspirin statin Opiate dependence Methadone once confirmed
--- NOTE | 2020-07-14 19:10 | MHC.CM.PN ---
CM met with pt. Dozing, but easily arousable. C/O hunger.Explained that CM will check with nurse about diet and get him some food. Pt is a . Lives with friend, Michael ([phone]). Uses public transportation or walks everywhere. Uses methadone for MAT. Pt states has been on MAT for about 6 months. No HCP on file- pt requests niece to be HCP. Will complete. May need Resp. evaluation prior to d/c. D/C plan is home without services. May need help with transportation home.
[2020-07-14] MEDS: cefTRIAXone sodium 1 GM in 0.9 % Sodium Chloride 50 ML IV (19:16)
[2020-07-14] MEDS: Enoxaparin Sodium 40 MG/0.4 ML SYRINGE SUBCUT (19:16)
[2020-07-14] MEDS: Albuterol/Iprat 2.5/0.5MG 3 ML AMPUL.NEB INHALE (19:17)
[2020-07-14] MEDS: methylPREDNISolone Sod Succ 125 MG/2 ML VIAL 60 MG IVPUSH (19:17)
--- NOTE | 2020-07-14 19:36 | PC.NURSE ---
attempted to give report 1 x. expecting call back. monitoring at this.
--- NOTE | 2020-07-14 19:38 | MHC.CM.PN ---
CM reviewed and completed HCP at pt request. Pt signed and copies given. Cindy Bipin HCP/Niece ([phone]). Upload[place] into [facility] and [place] [facility]. Pt admits to Dr. Ulloa that he uses heroin daily. CM to follow for d/c needs.
[2020-07-14 20:46] LABS: Glucose, Whole Blood 144 mg/dL (60-115)
[2020-07-14] MEDS: Metoprolol Tartrate 25 MG TABLET PO (20:52)
[2020-07-14] MEDS: Atorvastatin Calcium 80 MG TABLET PO (20:52)
[2020-07-14] MEDS: Insulin Glargine,Hum.rec.anlog 100 UNIT/ML 10 ML VIAL 10 UNIT SUBCUT (20:52)
[2020-07-14] MEDS: 0.9 % Sodium Chloride Flush 3 ML SYRINGE IVFLUSH (20:53)
[2020-07-14] MEDS: hydrOXYzine HCL 10 MG TABLET PO (23:53)
[2020-07-15] VITALS (12 sets, daily range): BP systolic 120–175; BP diastolic 71–110; PULSE 68–90; RESP 12–20; TEMP 36.6–37.2; O2SAT 95–99; BMI 20.4
[2020-07-15] MEDS: diphenhydrAMINE HCL 50 MG/ML VIAL 25 MG IVPUSH (01:26)
--- NOTE | 2020-07-15 02:52 | PC.NURSE ---
Pt was recorded to have a BP of 160/100. Md was notified
[2020-07-15] MEDS: Albuterol/Iprat 2.5/0.5MG 3 ML AMPUL.NEB INHALE ×5 (04:04→21:03)
[2020-07-15] MEDS: Omeprazole 20 MG CAPSULE.DR 40 MG PO (05:57)
[2020-07-15 06:04] LABS: MANUAL DIFF FLAG NO
[2020-07-15 06:22] LABS: Basophils Percent Auto 0.1 % (0-2); Eosinophils Percent Auto 0.1 % (0-4); Hematocrit 43.1 % (42-52); Hemoglobin 14.1 g/dl (14.0-18.0); Imm Gran Pct Auto 0.6 % (0.0-0.4); Lymphocytes Absolute Auto 1.1 X10*3/uL (1.2-4.9); Lymphocytes Percent Auto 6.3 % (20-40); Mean Corpuscular HGB Conc 32.7 g/dl (31.0-36.0); Mean Corpuscular Hemoglobin 30.3 pg (27.0-33.0); Mean Corpuscular Volume 92.7 fL (80-98); Mean Platelet Volume 10.5 fL (9.4-12.4); Monocytes Absolute Auto 0.8 X10*3/uL (0.1-1.2); Monocytes Percent Auto 4.7 % (2-11); Neutrophils Absolute Auto 14.9 X10*3/uL (2.0-8.3); Neutrophils Percent Auto 88.2 % (45-73); Platelet Count 230 X10*3/uL (160-400); Red Blood Count 4.65 X10*6/uL (4.60-5.80); Red Cell Distribution Width 13.2 % (11.0-16.0); White Blood Count 16.9 X10*3/uL (4.8-10.8)
[2020-07-15 06:34] LABS: Anion Gap 16 (12-20); Blood Urea Nitrogen 20 mg/dL (9-16); Carbon Dioxide 27 mmol/L (22-29); Chloride 98 mmol/L (96-108); Creatinine Clr Calc Pharmacy 82.2; Estimated Glomerular Filt Rate > 60; Glucose Random 150 mg/dL (60-115); Magnesium 2.1 mg/dL (1.6-2.6); Potassium 4.1 mmol/L (3.3-5.1); Sodium 137 mmol/L (135-145)
[2020-07-15 06:52] LABS: HIV AB/AG Nonreactive (Nonreactive)
[2020-07-15 07:11] LABS: Glucose, Whole Blood 150 mg/dL (60-115)
[2020-07-15] MEDS: Fluticasone/Vilanterol 100/25 BLST.W.DEV 1 PUFF INHALE (07:47)
[2020-07-15] MEDS: Nicotine 21 MG PATCH.TD24 TRANSDERMA (08:00)
[2020-07-15] MEDS: DULoxetine HCl 60 MG CAPSULE.DR PO (08:01)
[2020-07-15] MEDS: methylPREDNISolone Sod Succ 125 MG/2 ML VIAL 60 MG IVPUSH ×2 (08:01→20:22)
[2020-07-15] MEDS: Azithromycin 500 MG TABLET PO (08:01)
[2020-07-15] MEDS: Metoprolol Tartrate 25 MG TABLET PO ×2 (08:01→20:38)
[2020-07-15] MEDS: Furosemide 40 MG/4 ML VIAL IVPUSH ×2 (08:01→16:39)
[2020-07-15] MEDS: lisinopriL 20 MG TABLET PO (08:01)
[2020-07-15] MEDS: amLODIPine Besylate 5 MG TABLET PO (08:02)
[2020-07-15] MEDS: Aspirin Enteric Coated 81 MG TABLET.DR PO (08:02)
[2020-07-15] MEDS: 0.9 % Sodium Chloride Flush 3 ML SYRINGE IVFLUSH ×2 (08:08→16:40)
[2020-07-15 11:14] LABS: Glucose, Whole Blood 236 mg/dL (60-115)
[2020-07-15] MEDS: Insulin Lispro 100 UNIT/ML 3 ML VIAL SUBCUT ×3 (11:56→20:38)
--- NOTE | 2020-07-15 13:11 | HO.PM.IMPN ---
Subjective Subjective Date of Service: 07/15/20 Interval History: improved shortness of breath but still worse than baseline Cardiovascular Cardiovascular: Denies chest pain Gastrointestinal Gastrointestinal: Reports no additional gastrointestinal complaints Physical Exam Vital Signs: Vital Signs: Last Vital Signs Temp 98.4 F 07/15/20 11:54 Pulse 70 07/15/20 11:54 Resp 20 07/15/20 11:54 BP 125/73 07/15/20 11:54 Pulse Ox 95 07/15/20 11:54 Body Mass Index 20.4 General: AO X 3, malnourished, dishevled, overall ill appearing Resp: diminished CVS: S1,S2,RRR GI: soft, non tender, non distended Neuro: motor grossly intact Psych: appropriate affect Objective Data Current Medications Generic Name Dose Route Start Last Admin Trade Name Freq PRN Reason Stop Dose Admin Acetaminophen 650 mg 07/14/20 18:25 Acetaminophen 325 Mg Tablet PO Q6H PRN Pain, Mild (Pain Scale 1-3) Albuterol/Ipratropium 3 ml 07/14/20 20:00 07/15/20 11:42 Albuterol/Iprat 2.5/0.5mg 3 Ml Ampul.Neb INHALE 3 ml RQ4H WHILE AWAKE HA Administration Albuterol/Ipratropium 3 ml 07/15/20 02:57 07/15/20 04:04 Albuterol/Iprat 2.5/0.5mg 3 Ml Ampul.Neb INHALE 3 ml RQ4H PRN Administration Shortness of Breath/Wheezing Amlodipine Besylate 5 mg 07/15/20 09:00 07/15/20 08:02 Amlodipine Besylate 5 Mg Tablet PO 5 mg DAILY HA Administration Protocol Aspirin 81 mg 07/15/20 09:00 07/15/20 08:02 Aspirin Enteric Coated 81 Mg Tablet. PO 81 mg DAILY HA Administration Atorvastatin Calcium 80 mg 07/14/20 21:00 07/14/20 20:52 Atorvastatin Calcium 80 Mg Tablet PO 80 mg BEDTIME HA Administration Azithromycin 500 mg 07/15/20 08:00 07/15/20 08:01 Azithromycin 500 Mg Tablet PO 500 mg Q24H HA Administration Duloxetine HCl 60 mg 07/15/20 09:00 07/15/20 08:01 Duloxetine Hcl 60 Mg Capsule. PO 60 mg DAILY HA Administration Enoxaparin Sodium 40 mg 07/14/20 20:00 07/14/20 19:16 Enoxaparin Sodium 40 Mg/0.4 Ml Syringe SUBCUT 40 mg Q24H HA Administration Fluticasone/Vilanterol 1 puff 07/15/20 08:00 07/15/20 07:47 Fluticasone/Vilanterol 100/25 Blst.W.Dev INHALE 1 puff RDAILY HA Administration Furosemide 40 mg 07/15/20 09:00 07/15/20 08:01 Furosemide 40 Mg/4 Ml Vial IVPUSH 40 mg BID@0900,1800 HA Administration Protocol Hydroxyzine HCl 10 mg 07/14/20 18:25 07/14/20 23:53 Hydroxyzine Hcl 10 Mg Tablet PO 10 mg BEDTIME PRN Administration Insomnia Ceftriaxone Sodium 1 gm/ 50 mls @ 100 mls/hr 07/14/20 20:00 07/14/20 20:30 Sodium Chloride IV Infused Q24H HA Infusion Insulin Glargine 10 unit 07/14/20 21:00 07/14/20 20:52 Insulin Glargine,Hum.Rec.Anlog 100 Unit/Ml 10 Ml Vial SUBCUT 10 unit BEDTIME HA Administration Insulin Human Lispro 0 unit 07/14/20 21:00 07/15/20 11:56 Insulin Lispro 100 Unit/Ml 3 Ml Vial SUBCUT 4 unit QIDACHS REPLACED BY [facility] Administration Protocol Lisinopril 20 mg 07/15/20 09:00 07/15/20 08:01 Lisinopril 20 Mg Tablet PO 20 mg DAILY HA Administration Protocol Methadone HCl 70 mg 07/15/20 09:00 07/15/20 08:00 Methadone Hcl 1 Mg/0.1 Ml Oral.Conc PO 70 mg DAILY HA Administration Methylprednisolone Sodium Succinate 60 mg 07/14/20 19:00 07/15/20 08:01 Methylprednisolone Sod Succ 125 Mg/2 Ml Vial IVPUSH 60 mg Q12H HA Administration Metoprolol Tartrate 25 mg 07/14/20 21:00 07/15/20 08:01 Metoprolol Tartrate 25 Mg Tablet PO 25 mg BID HA Administration Protocol Multivitamins/Minerals 1 tab 07/15/20 09:00 07/15/20 08:02 Multivitamin With Minerals Tablet PO 1 tab DAILY HA Administration Nicotine 21 mg 07/15/20 00:20 07/15/20 10:05 Nicotine 21 Mg Patch.Td24 TRANSDERMA Not Given DAILY REPLACED BY [facility] Omeprazole 40 mg 07/15/20 06:30 07/15/20 05:57 Omeprazole 20 Mg Capsule. PO 40 mg DAILY@0630 REPLACED BY [facility] Administration Pharmacy Consult 1 each 07/14/20 07:44 Consult Rx Perform Med Rec MISCELLANE ONCE PRN Consult order Sodium Chloride 3 ml 07/15/20 00:00 07/15/20 08:08 0.9 % Sodium Chloride Flush 3 Ml Syringe IVFLUSH 3 ml QSHIFT REPLACED BY [facility] Administration Labs CBC & Chem 7: 07/15/20 05:18 07/15/20 05:18 Microbiology Microbiology Results: Microbiology 07/14/20 05:54 Blood - Venous Blood Culture - Preliminary No growth after 24 hours. 07/14/20 05:54 Blood - Venous Blood Culture - Preliminary No growth after 24 hours. Assessment and Plan (1) Opioid dependence: Status: Acute Assessment and Plan: 59M presented with shortness of breath Acute hypoxic and hypercapnic respiratory failure due to COPD, pneumonia, acute on chronic systolic CHF continue Steroids, bronchodilators, empiric antibiotics continue IV Lasix echo with EF 25% cardio eval has been off his meds restarted metoprolol, lisinopril Weight loss, cachexia hiv negative hcv outpatient follow up Diabetes Basal bolus insulin CAD Aspirin statin Opiate dependence Methadone once confirmed
--- NOTE | 2020-07-15 15:11 | MHC.CLN ---
PT IS SEVERELY MALNOURISHED PT WITH SEVERELY DEPLETED SUBCUTANEOUS FAT AND MUSCLE MASS, 10% SIG WT LOSS X 6 MONTHS, AND POOR PO >1 MONTH RECOMMEND CHANGING DIET TO 2000DM AND ADDING GLUCERNA BID TO INCREASE KCALS SEE ALSO CLINICAL NUTRITION ASSESSMENT
[2020-07-15 16:32] LABS: Glucose, Whole Blood 235 mg/dL (60-115)
--- NOTE | 2020-07-15 18:25 | CA_ITS ---
Transthoracic Echocardiogram Patient (Last, First, Middle): Claude Valdez J Gender: Male Date of : 1960 Age: 59 Procedure Date: 07/15/2020 Procedure Type: Transthoracic Echocardiogram [place] [facility] [place] Height: 170.18 cm Weight: 58.97 kg BSA: 1.68 m2 Heart Rate: bpm BP: 175 / 100 mmHg Jewelry Appraiser: LIBBY Referring MD: Demond Ulloa MD Scrummaster: Oleg De Anda MD Symptoms: chf Study Quality: Good ECG Rhythm: Sinus with extra beats Conclusions: - 1. Severe LV systolic dysfunction with regional wall motion abnormality with LVEF of 20-25% 2. Mildly dilated left atrium 3. Normal cardiac valvular Doppler 4. Normal RV systolic pressure 5. No pericardial effusion Findings Left Ventricle Mildly increased left ventricular cavity size. There is normal left ventricular wall thickness. The left ventricular systolic function is severely decreased. The visually estimated ejection fraction is between 20 25%. Diastolic function is indeterminate on the basis of available data. Wall Motion Rest Echo Findings The entire apex, anterior wall, entire septum, and entire lateral wall are hypokinetic. The basal inferior and mid inferior segments are akinetic. Right Ventricle Normal right ventricular cavity size and systolic function. Atria The left atrium is mildly dilated. There is no evidence of interatrial shunt. The right atrium is normal in size. There is a prominent eustachian valve. Aortic Valve Normal aortic valve structure and function. There is no aortic valve stenosis. There is no aortic valve regurgitation. Mitral Valve Normal mitral valve structure and function. There is trace mitral valve regurgitation. There is no mitral valve stenosis. Pulmonic Valve The pulmonic valve was not well visualized. Tricuspid Valve Likely normal tricuspid valve structure and function. There is mild tricuspid valve regurgitation. The right ventricular systolic pressure is normal. The right ventricular systolic pressure is 33 mmHg. There is no evidence of pulmonary hypertension. Great Vessels All visible segments of the aorta are normal in size. The pulmonary artery was not well visualized. Venous The inferior vena cava is normal in size and collapses greater than 50% with inspiration. Pericardium/Pleural There is no evidence of pericardial effusion. Prior Study Comparison No previous study in the last 5 years for comparison Measurements 2D Linear Measurements IVSd: 1.16 0.6-0.9/0.6-1.0 cm LVIDd: 5.52 3.9-5.3/4.2-5.9 cm LVIDd Index: 3.29 2.4-3.2/2.2-3.1 cm/m2 LVIDs: 4.16 2.0-3.6 cm LVPWd: 1.09 0.7-1.1 cm Ao Root: 3.50 2.1-3.5 cm LA Diam: 3.70 2.7-3.8/3.0-4.0 cm LAIDs Index: 2.20 1.5-2.3 cm/m2 LV Mass: 312.94 67-162/88-224 g LV Mass Index: 186.27 43-95/49-115 g/m2 LVOT Diam: 2.20 3.0+(-)1.3 cm 2D Systolic Function EF 4C: 19.10 >55% EF 2C: 23.10 >55% EF BiP: 25.60 >55% Mitral Valve MV Pk E: 0.67 MV PK A: 0.61 MV Decel Time: 185.00 E/A: 1.10 E'Lateral: 5.90 E'Medial: 5.03 E/E' Med: 13.20 E/E' Lat: 11.30 PHT: 54.00 MVA PHT: 4.07 Decel [place]: 3.60 Aortic Valve AoV Pk Memo: 1.34 AoV Mn Memo: 1.00 AoV VTI: 0.33 AoV Pk Grad: 7.00 Aov Mn Grad: 5.00 JIMMY Cont.VTI: 1.39 LVOT LVOT Pk Memo: 0.67 LVOT Mn Memo: 0.40 LVOT VTI: 0.12 LVOT Pk Grad: 2.00 LVOT Mn Grad: 1.00 LVOT Diam: 2.20 LVOT Area: 3.80 Diastolic Function MV Pk E: 0.67 MV Pk A: 0.61 E/A: 1.10 E'Medial: 5.03 E/E' Med: 13.20 E' Laterial: 5.90 E/E' Lat: 11.30 Tricuspid Valve TR Pk Memo: 2.75 TR Pk Grad: 30.00 RA Press: 3.00 RVSP: 33.00 Great Vessels Aorta Ao Root-2D: 3.50 2.0-3.7 cm Ao Asc: 3.30 2.1-3.4 cm Pulmonary Valve PV Pk Memo: 1.00 Peak PV Grad: 4.00 Updated in Other Vendor System with Status of Final Oleg De Anda MD electronically signed on 07/15/2020 12:14:49 PM with status of Final
[2020-07-15] MEDS: Enoxaparin Sodium 40 MG/0.4 ML SYRINGE SUBCUT (20:23)
[2020-07-15] MEDS: Atorvastatin Calcium 80 MG TABLET PO (20:23)
[2020-07-15] MEDS: cefTRIAXone sodium 1 GM in 0.9 % Sodium Chloride 50 ML IV (20:23)
[2020-07-15] MEDS: Insulin Glargine,Hum.rec.anlog 100 UNIT/ML 10 ML VIAL 10 UNIT SUBCUT (20:25)
[2020-07-15 20:29] LABS: Glucose, Whole Blood 210 mg/dL (60-115)
[2020-07-16] MEDS: 0.9 % Sodium Chloride Flush 3 ML SYRINGE IVFLUSH ×2 (00:23→08:26)
[2020-07-16 03:18] VITALS: BP 149/82; PULSE 62; RESP 18; TEMP 36.6; O2SAT 97
[2020-07-16] MEDS: methylPREDNISolone Sod Succ 125 MG/2 ML VIAL 60 MG IVPUSH (06:30)
[2020-07-16] MEDS: Omeprazole 20 MG CAPSULE.DR 40 MG PO (06:30)
[2020-07-16 06:45] LABS: MANUAL DIFF FLAG NO
[2020-07-16 07:00] LABS: Basophils Percent Auto 0.1 % (0-2); Hematocrit 43.7 % (42-52); Hemoglobin 14.7 g/dl (14.0-18.0); Imm Gran Pct Auto 0.6 % (0.0-0.4); Lymphocytes Absolute Auto 1.3 X10*3/uL (1.2-4.9); Lymphocytes Percent Auto 7.3 % (20-40); Mean Corpuscular HGB Conc 33.6 g/dl (31.0-36.0); Mean Corpuscular Hemoglobin 30.9 pg (27.0-33.0); Mean Platelet Volume 10.4 fL (9.4-12.4); Monocytes Absolute Auto 0.8 X10*3/uL (0.1-1.2); Monocytes Percent Auto 4.5 % (2-11); Neutrophils Absolute Auto 15.6 X10*3/uL (2.0-8.3); Neutrophils Percent Auto 87.5 % (45-73); Platelet Count 289 X10*3/uL (160-400); Red Blood Count 4.75 X10*6/uL (4.60-5.80); Red Cell Distribution Width 13.4 % (11.0-16.0); White Blood Count 17.8 X10*3/uL (4.8-10.8)
[2020-07-16 07:12] LABS: Glucose, Whole Blood 157 mg/dL (60-115)
[2020-07-16 07:36] LABS: Anion Gap 14 (12-20); B Type Natriuretic Peptide 1412 pg/mL (<100); Blood Urea Nitrogen 29 mg/dL (9-16); Calcium 9.1 mg/dL (8.4-10.2); Carbon Dioxide 31 mmol/L (22-29); Chloride 95 mmol/L (96-108); Creatinine Clr Calc Pharmacy 67.5; Estimated Glomerular Filt Rate > 60; Glucose Fasting 171 mg/dL (60-99); Magnesium 2.1 mg/dL (1.6-2.6); Potassium 5.1 mmol/L (3.3-5.1); Sodium 135 mmol/L (135-145)
[2020-07-16 07:44] VITALS: BP 190/93; PULSE 77; RESP 19; TEMP 36.6; O2SAT 96
[2020-07-16] MEDS: Furosemide 40 MG/4 ML VIAL IVPUSH (08:24)
[2020-07-16] MEDS: Insulin Lispro 100 UNIT/ML 3 ML VIAL SUBCUT (08:24)
[2020-07-16] MEDS: Aspirin Enteric Coated 81 MG TABLET.DR PO (08:25)
[2020-07-16] MEDS: lisinopriL 20 MG TABLET PO (08:25)
[2020-07-16] MEDS: Azithromycin 500 MG TABLET PO (08:25)
[2020-07-16] MEDS: DULoxetine HCl 60 MG CAPSULE.DR PO (08:25)
[2020-07-16] MEDS: Metoprolol Tartrate 25 MG TABLET PO (08:25)
[2020-07-16] MEDS: amLODIPine Besylate 5 MG TABLET PO (08:25)
[2020-07-16] MEDS: Nicotine 21 MG PATCH.TD24 TRANSDERMA (08:26)
[2020-07-16] MEDS: Albuterol/Iprat 2.5/0.5MG 3 ML AMPUL.NEB INHALE (09:35)
[2020-07-16] MEDS: Fluticasone/Vilanterol 100/25 BLST.W.DEV 1 PUFF INHALE (09:35)
[2020-07-16 09:37] VITALS: PULSE 74; O2SAT 96
--- NOTE | 2020-07-16 09:57 | P.EN_ITS ---
Event Note Date of Service: 07/16/20 Event Note: Discharge summary Discharge diagnosis Acute hypoxic and hypercapnic respiratory failure due to 1- COPD, 2- pneumonia,3- acute on chronic systolic CHF The patient was admitted to the hospital and treated with IV Lasix, steroids, bronchodilators and antibiotic as an echo showed ejection fraction of 25%. 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 He signed AMA papers and left the hospital. Treatment for COPD exacerbation and pneumonia was sent. Ask to resume his home medications and follow-up with outpatient Cardiology.
--- NOTE | 2020-07-16 10:24 | MHC.CM.PN ---
Patient is leaving AMA today, patient did sign AMA form. Home no services.
--- NOTE | 2020-07-16 11:45 | PM.EVENT ---
Event Note Date of Service: 07/16/20 Event Note: Patient left AMA before I could see him.
== END 2020-07-16 10:48 | disposition left against medical advice (07) | DRG 190 ==
LOC: HO.ED 13:46 → HO.EDOVER 18:48 → HO.IMC 19:24
PROVIDERS: Admitting Provider Internal Medicine; Emergency Provider Emergency Medicine Emergency Medical Services; PCP Physician Assistant Medical; Visit Provider Student in an Organized Health Care Education/Training Program
DX: J44.0 Chronic obstructive pulmonary disease with (acute) lower respiratory infection (principal); J96.02 Acute respiratory failure with hypercapnia; J96.01 Acute respiratory failure with hypoxia; J18.9 Pneumonia, unspecified organism; I50.23 Acute on chronic systolic (congestive) heart failure; F11.20 Opioid dependence, uncomplicated; R64 Cachexia; J44.1 Chronic obstructive pulmonary disease with (acute) exacerbation; I25.10 Atherosclerotic heart disease of native coronary artery without angina pectoris; B19.20 Unspecified viral hepatitis C without hepatic coma; I25.5 Ischemic cardiomyopathy; E11.9 Type 2 diabetes mellitus without complications; Z68.20 Body mass index [BMI] 20.0-20.9, adult; Z20.822 Contact with and (suspected) exposure to COVID-19; F17.210 Nicotine dependence, cigarettes, uncomplicated; Z71.6 Tobacco abuse counseling; Z79.4 Long term (current) use of insulin; Z79.82 Long term (current) use of aspirin; Z79.899 Other long term (current) drug therapy
CPT/HCPCS: 0241U; 36415; 71045; 71275; 80048; 80076; 82947; 83605; 83735; 83880; 84484; 85025; 85610; 87040; 87389; 87635; 93005; 93306; 94644; 94660; 96365; 96366; 96368; 96375; 99285; 99291; J0692; J0696; J1200; J1650; J1940; J2930; J3475; Q9967